=== PATIENT | male | born 1935 | race African-American/Black ===

== ENCOUNTER → 2016-10-16 | Day surgery (SDC) | payer MEDICARE ==
[~2016-10-16] MED LIST: ADAL60TA9 PO; ALLO100T PO; BUPIVACAINE HCL PF 0.5% 10 ML VIAL ONE; CLON-352 PO; LABE100 PO; LACTATED RINGER'S 1,000 ML BAG IV ONE; LORTA5 PO; METO50TA PO; OMEG100037 PO; OMEP20TA PO; PROPOFOL 500 MG/50 ML BTL IV ONE; SEVEL800 PO; SODIUM CHLORIDE 0.9% SOLN 1000 ML BTL ONE; SULF500T35 PO; ceFAZolin INJ 1,000 MG VIAL ONE
--- NOTE | 2016-10-19 21:44 | MP ---
cc: ELIECER MCGOVERN DATE OF SURGERY 10/16/16 PREOPERATIVE DIAGNOSIS Right hand carpal tunnel syndrome POSTOPERATIVE DIAGNOSES Right hand carpal tunnel syndrome PROCEDURE Right hand carpal tunnel release. SURGEON Dr. Adán Mcgovern ANESTHESIA General [facility] REVIEW OF SYSTEMS Less than 10 mL. TOURNIQUET TIME Zero minutes. COMPLICATIONS None. JUSTIFICATION The patient is a 81-year male with history of right hand pain and numbness consistent with carpal tunnel syndrome. He has failed conservative treatment. He was counseled as to risks, benefits and alternatives of the above named proposed surgical procedure. He did wish to proceed with surgery. PROCEDURE IN DETAIL Written consent was obtained. The patient identified by name, taken to the operating room, placed supine on the operating table. General anesthesia was administered as well as 1 gram of IV Ancef. Right upper extremity was prepped and draped using isopropyl alcohol, Hibiclens solution and DuraPrep solution. After time-out was performed, 5 mL of 0.5% plain Marcaine was injected in the palmar crease. A longitudinal incision was made over the ulnar border of the palmar crease. Dissection was carried down over the transverse carpal ligament. Transverse carpal ligament was released to allow for decompression of the median nerve at the carpal tunnel. Surgical wounds were thoroughly irrigated with sterile saline solution. Subcutaneous layer was closed with 4-0 Vicryl suture. Skin was closed with 4-0 nylon. Sterile dressing was applied. The patient tolerated the procedure well with no intraoperative complications noted. MD GENESIS Molina/ /4:11 PM /9:35 PM
== END | disposition home or self-care (01) ==
LOC: ESDC 14:02
PROVIDERS: ATTEND Orthopaedic Surgery Sports Medicine
DX: G56.01 Carpal tunnel syndrome, right upper limb (principal)
CPT/HCPCS: 01810; 64721; J0690; J3010; J7120